=== PATIENT | female | born 1990 | race Caucasian/White ===

== ENCOUNTER 2016-12-05 12:26 | Outpatient (CLI) | payer MEDICAID ==
[~2016-12-05 12:26] MED LIST: ACET325T51 PO; NO ROUTINE MEDS; ONDA4TAB7 PO; PROM25TA7 PO
[2016-12-05 12:58] LABS: BLOOD, URINE NEGATIVE (NEGATIVE); COLOR,URINE YELLOW (YELLOW); LEUKOCYTE ESTERASE ,URINE NEGATIVE (NEGATIVE); NITRITE,URINE NEGATIVE (NEGATIVE); UROBILINOGEN,URINE 0.2 EU/DL (NORMAL)
--- NOTE | 2016-12-05 13:16 | PNPDOC ---
ALUMINIZER Progress Note Subjective Today's Date 12/05/16 G1 at 28w5d who came to the ER with c/o bleeding hemorrhoid and constipation. Her BMs have only been every 3 days lately. She's tried a dose of MOM without help. She had a hard BM this AM which caused bleeding from the hemorrhoid. No vaginal bleeding. She's tried preparation H and Tucks pads without relief. No abdominal pain, ctx, LOF. Good FM. She reported urinary retention to the ER, but she has been able to void since being on MC. Objective General: Alert and Oriented Objective Comments Rectal- 2 cm inflamed, nonthrombosed hemorrhoid present with small blood on the surrounding skin. FHT- reactive [place]-none UA- normal Assessment Comments 1. Good oral hydration and fiber intake 2. Start daily Miralax to make BMs more frequent and softer. 3. Anusol 2-3 times daily to the hemorrhoid 4. Sitz baths and ice packs. 5. Keep appt on Thu as scheduled. SARA RODRIGUEZ MD December 05, 2016 13:14
[2016-12-05] MEDS ORDERED: HYDROCORTISONE 2.5% CREAM 30 GM TOP PRN (13:30)
== END 2016-12-05 13:20 | disposition home or self-care (01) ==
LOC: OBOBS 12:26 → MC 12:27 → OBOBS 13:20
PROVIDERS: ATTEND Obstetrics & Gynecology
DX: O22.43 Hemorrhoids in pregnancy, third trimester (principal); K59.00 Constipation, unspecified; Z3A.28 28 weeks gestation of pregnancy
CPT/HCPCS: 81003

== ENCOUNTER 2017-02-20 06:00 | Inpatient (IN) ==
[2017-02-23 16:25] VITALS: BMI 30.3
[2017-02-23] MEDS ORDERED: LIDOCAINE 1% (10mg/ml) 2mL INJ PF SDV ID PRN (16:25)
[2017-02-23] MEDS ORDERED: METHYLERGONOVINE 0.2 MG/ML INJECTION IM PRN (16:25)
[2017-02-23] MEDS ORDERED: CALCIUM CARBONATE Chewable 500mg TABLET PO PRN (16:25)
[2017-02-23] MEDS ORDERED: CARBOPROST 250 MCG/ML INJECTION IM PRN (16:25)
[2017-02-23] MEDS ORDERED: ACETAMINOPHEN 500 MG TABLET PO PRN (16:25)
[2017-02-23] MEDS ORDERED: MAG-AL + SIM ORAL LIQUID 30ml PO PRN (16:25)
[2017-02-23] MEDS ORDERED: ZOLPIDEM 5 MG TABLET PO PRN (16:28)
[2017-02-23] MEDS ORDERED: SALINE FLUSH 10ml SYRINGE IVF PRN (16:28)
--- NOTE | 2017-02-23 17:21 | OB/GYN Progress Note ---
- Pain Control Pain control: Tolerating well - Pelvic Exam Dilation (cm): 0 Effacement (%): 0 station: -3 Amniotic membrane status: Intact - Contractions Monitor mode: External Contraction frequency: 0 - Status status: Category l - Assessment and Plan Assessment: induction ongoing (FB placed tolerated Mom/Baby procedure well )
[2017-02-24] MEDS ORDERED: D5LR 1,000 ML IV PRN (02:33)
[2017-02-24] MEDS ORDERED: OXYTOCIN DRIP 30 UNIT/500 ML ML IV PRN (05:00)
[2017-02-24] MEDS: LR 1,000 ML IV PRN ×3 (05:10→13:15)
[2017-02-24] MEDS ORDERED: DiphenhydrAMINE 50 MG/ML INJECTION IVP PRN (08:13)
[2017-02-24] MEDS ORDERED: ROPIVACAINE 1% 10MG/ML INJ 200 MG, SUFentanil 50 MCG in NS 100 ML EPI PRN (08:13)
[2017-02-24] MEDS ORDERED: NALOXONE 0.4 MG/ML INJECTION IVP PRN (08:13)
[2017-02-24] MEDS ORDERED: ONDANSETRON 4 MG/2 ML INJECTION IVP PRN (08:13)
--- NOTE | 2017-02-24 08:13 | Anesthesia Preoperative Report ---
Anesthesia Epidural/Spinal Rec - Date and Time Date: 02/24/17 Procedure: Labor Epidural Plan: Epidural - Vital Signs Vital Signs: Temperature 98.0 F 02/24/17 01:16 Pulse Rate 76 02/24/17 01:16 Respiratory Rate 14 02/24/17 01:16 Blood Pressure 130/80 02/24/17 01:16 Pulse Oximetry 99 02/23/17 16:50 Oxygen Delivery Method Room Air NPO since: mn /Para: P:0 Heart Rate: 130 Height and Weight: 5' 3" - Medictaions & Allergies Inpatient Medications: Current Medications Acetaminophen (Tylenol) 500 - 1,000 mg PO Q4H PRN PRN Reason: Pain Last Admin: 02/24/17 04:51 Dose: 1,000 mg Acetaminophen/Hydrocodone Bitart ([place] 5/325) 1 - 2 tab PO Q4H PRN PRN Reason: Pain Al Hydroxide/Mg Hydroxide (Maalox Plus) 30 ml PO Q3H PRN PRN Reason: Indigestion Calcium Carbonate (Tums) 500 - 1,000 mg PO Q2H PRN PRN Reason: Indigestion Carboprost Tromethamine (Hemabate) 250 mcg IM O PRN PRN Reason: .Downtime Lactated Ringer's (Lactated Ringers) 1,000 mls @ 1,000 mls/hr IV .Q1H PRN PRN Reason: as directed Last Admin: 02/24/17 07:43 Dose: 1,000 mls/hr Dextrose/Lactated Ringer's (Dextrose 5%-Lactated Ringers) 1,000 mls @ 125 mls/ hr IV .Q8H PRN PRN Reason: Labor Last Admin: 02/24/17 05:11 Dose: 125 mls/hr Oxytocin (Pitocin Drip) 30 unit in 500 mls @ 2 mls/hr IV .Q24H PRN; Protocol PRN Reason: Induction/Augmentation Last Admin: 02/24/17 05:11 Dose: 2 mls/hr Lidocaine HCl (Xylocaine-Mpf 1% Vial) 0.2 mg ID O PRN PRN Reason: IV Start Methylergonovine Maleate (Methergine) 0.2 mg IM O PRN Misoprostol (Cytotec) 800 mcg AR ONCE PRN Sodium Chloride (Iv Flush) 10 - 80 ml IVF PRN PRN PRN Reason: Flushing Last Admin: 02/23/17 21:09 Dose: 10 ml Zolpidem Tartrate (Ambien) 5 mg PO O PRN PRN Reason: Insomnia Last Admin: 02/23/17 22:33 Dose: 5 mg Allergies/Adverse Reactions: Allergies Allergy/AdvReac Type Severity Reaction Status Date / Time No Known Allergies Allergy Unverified 06/09/15 12:55 - Home Medications Home Medications: Home Medications Medication Instructions Recorded Confirmed Type Acetaminophen 1 tab PO QID PRN #0 08/14/16 History NO ROUTINE MEDS #0 08/14/16 History Promethazine HCl 25 mg PO PRN PRN #0 08/14/16 History - Medical History Gastrointestional: Reports: Gastroesophageal Reflux Disease Neuro/Musculoskeletal: Reports: Headaches - Surgical History Anesthesia Reactions: None Hx Family Anesthesia Reaction: No History of Motion Sickness: No - Social History Second Hand Exposure: No Substance Use Type: does not use Alcohol Intake Frequency: does not drink Hx Chewing Tobacco Use: No - Pertinent Findings Lab Data: CBC and BMP 02/23/17 16:39 - Physical Exam Respiratory Exam: lungs clear Cardiovascular Exam: regular rate and rhythm - Airway Assessment Mallampati Score: I TMD: 3 Fingerbreadths Neck Extension: good Overall Assessment: no airway concerns - ASA ASA Score: 2 - Discussion Discussion: Discussed risks/options/alternatives of anesthesia and questions answered. Patient consents. Nursing pain assessment noted. Anesthesia Discussion: family member Attestation Statement: Prior to the delivery of any anesthetic medication, I examined the patient, developed the plan, obtained the patient's consent and discussed the risk and benefits of the procedure with the patient/guardian.
[2017-02-24] MEDS ORDERED: HYDROCORTISONE 2.5% CREAM 30gm RECTALLY PRN (13:58)
[2017-02-24] MEDS ORDERED: IBUPROFEN 800 MG TABLET PO PRN (13:58)
[2017-02-24] MEDS ORDERED: DiphenhydrAMINE 25 MG CAPSULE PO PRN (13:58)
[2017-02-24] MEDS: OXYTOCIN DRIP 30 UNIT/500 ML ML IV SCH ×2 (14:09→15:40)
--- NOTE | 2017-02-24 18:47 | Anesthesia Postoperative Note ---
- Date and Time Date: 02/24/17 Time: 18:46 - Status Patient Participated in Evaluation: Patient Participated in Person Vital Signs: Temperature 98.0 F 02/24/17 01:16 Pulse Rate 76 02/24/17 01:16 Respiratory Rate 14 02/24/17 01:16 Blood Pressure 130/80 02/24/17 01:16 Pulse Oximetry 99 02/23/17 16:50 Oxygen Delivery Method Room Air Respiratory Function: Airway Patent Cardiovascular Function: Regular Pulse Mental Status: Alert and Oriented Pain Intensity: 2 Hydration: Taking PO Fluids Complications During Recover: None Apparent Post Anesthesia Care Notes: pt ambulating with full motor control. no complications - Follow-Up Instructions Instructions: Per Surgeon
[2017-02-24 21:09] VITALS: RESP 16
[2017-02-24] MEDS: HYDROCODONE/APAP 5mg/325mg TABLET PO PRN (22:43)
[2017-02-25 02:43] VITALS: BP 120/73; PULSE 92; TEMP 98.3; O2SAT 98
[2017-02-25] MEDS: HYDROCODONE/APAP 5mg/325mg TABLET PO PRN ×3 (04:49→14:48)
--- NOTE | 2017-02-25 06:56 | Labor and Delivery Note ---
DATE OF DELIVERY 02/24/2017 DELIVERY NOTE Mica is a 27-year-old 1 at 40 weeks 2 days gestational age who was brought in last evening for Branch bulb cervical ripening. This morning she was started on Pitocin. Her membranes were ruptured artificially, returning lightly stained meconium fluid. She received an epidural. She progressed nicely throughout labor and only pushed for approximately an hour. She had a spontaneous vaginal delivery in the YUNG position of a viable male infant, Apgars 7/9, weight 3435 grams, name "Christiano." Baby was vigorous at delivery, so he was placed on mom's abdomen and the cord clamping was delayed for more than two minutes. The placenta delivered spontaneously. She had a second- degree laceration that was repaired. She also had 13 lesions of the vulva and buttocks that she previously asked me to excise at the time of delivery. These were all cleansed with Betadine. A scalpel was used to shave them off and they were sent to pathology. Silver nitrate was used for hemostasis. Mom and baby tolerated the delivery well. [facility]
--- NOTE | 2017-02-25 07:48 | Pharmacy Consult ---
Pharmacy Consult-Rhophylac - Laboratory Information 02/23/17 02/24/17 02/24/17 16:39 13:58 16:37 Hgb /Adult Ratio 0.0000 Blood Type A Negative RhIG Candidate? Is a candidate - Consult Information Rh FACTOR CONSULT: Mother Blood Type = A NEGATIVE Child Blood Type = A POSITIVE Hgb / Adult Ratio = 0.0000 Will give Rho D Immunglobulin 300mcg IV x 1 dose. Thank you.
[2017-02-25] MEDS ORDERED: RHO(D) IMMUNE GLOBULIN 300 MCG/2 ML INJECTION IVP ONE (08:00)
--- NOTE | 2017-02-25 08:35 | OB/GYN Progress Note ---
OB-PP Progress Note - General PPD1 Maternal Group B Strep: Negative Maternal blood type: A- Maternal Rubella Status: Immune General: Baby Rh positive. She's sore from the skin tag excisions. - Subjective Date: 02/25/17 Lochia: Minimal Pain: contolled Voiding: voiding (o) - Objective Vital Signs: Last Vital Signs Temp 98.3 F 02/25/17 00:45 Pulse 92 02/25/17 00:45 Resp 16 02/25/17 00:45 BP 120/73 02/25/17 00:45 Pulse Ox 98 02/25/17 00:45 Urine Output: good Abdomen: fundus firm, non-tender Extremities: non-tender Laboratory: Laboratory Results - last 24 hr 02/24/17 02/24/17 13:58 16:37 Hgb /Adult Ratio 0.0000 RhIG Candidate? Is a candidate - Assessment Assessment: - Plan Plan: routine care, discharge home, continue PNV Rhophylac given.
--- NOTE | 2017-02-25 08:42 | Discharge Instructions ---
Discharge Plan - Med Rec/Dispo Prescriptions: New Hydrocodone/APAP 5/325 [[place] 5/325] 1 - 2 tab PO Q4H PRN #30 tablet PRN Reason: Pain Ibuprofen [Motrin] 800 mg PO Q8H PRN #30 tablet PRN Reason: Pain Continue Promethazine HCl 25 mg PO PRN PRN #0 PRN Reason: NAUSEA Ondansetron [Zofran Odt] 4 mg PO Q6HR #10 tab Acetaminophen 1 tab PO QID PRN #0 PRN Reason: PAIN Discontinued NO ROUTINE MEDS #0 Discharge Instructions/Outpatient Orders: Final Provider Discharge Instructions Location: Determined By Patient - Disposition 01 Discharged Home, Self-Care
[2017-02-25] MEDS ORDERED: DOCUSATE CALCIUM 240 MG CAPSULE PO SCH (09:00)
== END 2017-02-25 18:30 | disposition home or self-care (01) | DRG 983 ==
LOC: MC 02-23 16:10
PROVIDERS: ADMIT Obstetrics & Gynecology; ATTEND Obstetrics & Gynecology